=== PATIENT | male | born 1990 | race Caucasian/White ===

== ENCOUNTER 2025-05-26 12:02 | Emergency (ER) | payer BC, SELFPAY ==
[2025-05-26] VITALS (9 sets, daily range): BP systolic 93–130; BP diastolic 76–80; PULSE 65; TEMP 36.4; O2SAT 97–100; BMI 25.1
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
--- OUTSIDE RECORDS SUMMARY | 2025-05-26 12:38 | XMS_ITS | Clinical Summary ---
Author Organization [facility] Address [address] [place] [address] Care Team Providers Care Funeral Home Assistant Name Role Phone Wilbert Yi MD Primary Care Provider [phone] Maggy Parra HOME DEMONSTRATION AGENT Unavailable [phone] Allergies No known active allergies Medications No known medications Active Problems No known active problems Immunizations Immunization Administration Dates Next Due DTP 05/25/1994,02/16/1994 MMR (MMR II) 02/16/1994 OPV 05/25/1994,02/16/1994 Tdap (ADACEL/BOOSTRIX) 11/06/2016 Social History Tobacco Use Types Packs/Day Years Used Date Smoking Tobacco: Former Cigarettes Smokeless Tobacco: Never Tobacco Cessation:Counseling Given: Not Answered Alcohol Use Standard Drinks/Week Comments No 0 (1 standard drink = 0.6 oz pur e alcohol) Sex and Gender Information Value Date Recorded Sex Assigned at Not on file Legal Sex Male 10:42 PM EST Gender Identity Not on file Sexual Orientation Not on file Last Filed Vital Signs Vital Sign Reading Time Taken Comments Blood Pressure 130/84 08/27/2024 2:30 PM EST Pulse 76 08/27/2024 2:30 PM EST Temperature 36.7 C (98.1 F) 08/21/2024 9:03 AM EST Respiratory Rate 18 12/22/2022 4:31 PM EDT Oxygen Saturation 95% 08/27/2024 2:30 PM EST Inhaled Oxygen Concentration - - Weight 90.3 kg (199 lb) 08/27/2024 2:30 PM EST Height 177.8 cm (5' 10 ) 08/27/2024 2:30 PM EST Body Mass Index 28.55 08/27/2024 2:30 PM EST Plan of Treatment Health Maintenance Due Date Last Done Comments [facility] Depression Screen 2000 Hepatitis B Vaccines (1 of 3 - 19+ 3-dose series) 2007 Influenza Vaccine(s) (#1) 2025 Bvcjmdv-Cbnjghbjvc-Bnodksple Vaccines (4 - Td or Tdap) 11/06/2026 11/06/2016, 05/25/1994, 02/16/1994 Shingles Vaccine (Non-Medicare; Age 50+ or All Ages Risk Series) (1 of 2) 2038 RSV for patients an d patients 60yrs or older (1 - 1-dose 75+ series) 2063 Hib Vaccines Aged Out No longer eligi ble based on patient's age to complete this topic Meningococcal (MCV4) Vaccines Aged Out No longer eligible based on patient's age to complete this topic Pneumococcal Vaccine (Pediatric Routine or All Ages Risk Series) Aged Out No longer eligible b ased on patient's age to complete this topic Insurance [facility] [facility] [place] [id number] Care Teams Funeral Home Assistant Relationship Specialty Start Date End Date Wilbert Yi MD [address] [place], [place] [id number] PCP - General Family Medicine 08/27/24 Maggy Parra NP [address] [place] [address] PCP - PC Team Nurse Practitioner 08/27/24
[2025-05-26] MEDS: ACETAMINOPHEN 300 MG/ 30 MG CODEINE TABLET 1 TAB PO (13:48)
== END 2025-05-26 13:57 | disposition home or self-care (01) ==
PROVIDERS: Emergency Provider Emergency Medicine
DX: S20.211A Contusion of right front wall of thorax, initial encounter (principal); V86.59XA Driver of other special all-terrain or other off-road motor vehicle injured in nontraffic accident, initial encounter
CPT/HCPCS: 71101; 99283